=== PATIENT | female | born 1975 | race African-American/Black ===

== ENCOUNTER 2019-05-30 14:33 | Outpatient (CLI) | payer OTHER ==
--- NOTE | 2019-05-30 15:38 | ULT ---
THYROID ULTRASOUND: HISTORY: Goiter. COMPARISON: 12/21/2010. TECHNIQUE: Sagittal and transverse imaging of the thyroid gland is performed. FINDINGS: Thyroid isthmus measures 1.9 cm. Right thyroid lobe measures 6.7 x 3.0 x 2.3 cm. Left thyroid lobe measures 6.6 x 2.2 x 2.3 cm. Diffuse heterogeneity throughout the thyroid gland. In the thyroid isthmus, there is an ill-defined solid nodule measuring 1.4 x 1.3 x 1.7 cm. Isthmus no dule was not appreciated on the previous exam. In the left thyroid lobe, there are 2 mixed solid and cystic nodules measuring 1.6 x 1.5 x 0.7 cm and 1.4 x 1.5 x 0.9 cm. Both nodules are in the lower pole and are ill-defined. Previously, these nodules measured less than 1.5 cm in maximum dimension. IMPRESSION: 1. Interval development of a new solid nodule in the thyroid isthmus as well as enlarging ill-define d nodules in the left thyroid lobe. 2. TIRADS Calculator TR3, mildly suspicious. Six-month follow-up ultrasound is recommended. Transcribed Date/Time: 05/30/2019 3:44 PM
== END 2019-05-30 14:34 | disposition home or self-care (01) ==
LOC: SCSULT 14:33
PROVIDERS: ATTEND Family Medicine
DX: E04.9 Nontoxic goiter, unspecified (principal); E04.1 Nontoxic single thyroid nodule
CPT/HCPCS: 76536

== ENCOUNTER 2021-01-20 08:29 | Outpatient (CLI) | payer OTHER | END 2021-01-20 08:30 | disposition home or self-care (01) | LOC: BICMAMMO 08:29 | PROVIDERS: ATTEND Family Medicine | DX: R92.8 Other abnormal and inconclusive findings on diagnostic imaging of breast (principal) | CPT/HCPCS: G0279 ==

== ENCOUNTER 2021-02-22 13:48 | Outpatient (CLI) | payer OTHER | END 2021-02-22 13:49 | disposition home or self-care (01) | LOC: BICULT 13:48 | PROVIDERS: ATTEND Student in an Organized Health Care Education/Training Program | DX: R22.1 Localized swelling, mass and lump, neck (principal); E07.89 Other specified disorders of thyroid | CPT/HCPCS: 76536 ==

== ENCOUNTER 2021-08-01 13:02 | Outpatient (CLI) | payer BC | END 2021-08-01 13:03 | disposition home or self-care (01) | LOC: BICMAMMO 13:02 | PROVIDERS: ATTEND Family Medicine | DX: R92.8 Other abnormal and inconclusive findings on diagnostic imaging of breast (principal) | CPT/HCPCS: 77066; G0279 ==

== ENCOUNTER 2022-01-30 08:53 | Outpatient (CLI) | payer BC | END 2022-01-30 08:54 | disposition home or self-care (01) | LOC: BICMAMMO 08:53 | PROVIDERS: ATTEND Family Medicine | DX: R92.8 Other abnormal and inconclusive findings on diagnostic imaging of breast (principal); N63.20 Unspecified lump in the left breast, unspecified quadrant | CPT/HCPCS: G0279 ==

== ENCOUNTER 2022-09-20 13:29 | Outpatient (CLI) | payer OTHER | END 2022-09-20 13:30 | disposition home or self-care (01) | LOC: BICMAMMO 13:29 | PROVIDERS: ATTEND Obstetrics & Gynecology | DX: N64.4 Mastodynia (principal) | CPT/HCPCS: 77066; G0279 ==